=== PATIENT | female | born 1955 | race Caucasian/White ===

== ENCOUNTER 2017-01-28 17:04 | Inpatient (IN) ==
[2017-01-28] MEDS ORDERED: *HR* Adenosine 6 MG/2 ML VIAL IVP ONE ×2 (17:05→17:24)
[2017-01-28] MEDS ORDERED: *HR* Adenosine 6 MG/2 ML SYRINGE IVP ONE (17:11)
[2017-01-28 17:17] LABS: Basophils % 0.7 %
--- NOTE | 2017-01-28 17:17 | Emergency Department Note ---
Disposition Clinical Impression: Narrow complex tachycardia Disposition: Admitted As Inpatient Condition: Good Time of Disposition: 17:35 Arrhythmia/Palpitations HPI - General Chief Complaint: ED Arrhythmia/Palpitations Stated Complaint: Arrhythmia Time Seen by Provider: 01/28/17 17:05 Source: patient Mode of arrival: wheelchair Limitations: no limitations Nursing Notes Reviewed: Yes Vital Signs Reviewed: Yes - History of Present Illness HPI Narrative: The patient is a 61-year-old who had an AL back in the end of October who was at cardiac rehabilitation and developed a rapid narrow complex tachycardia. The regular with a rate of about 200. Patient was brought over a wake and alert her blood pressure was 114 range. Pt Subjective Complaint: rapid heart beat Onset (ago): Just [employer] Duration: constant Severity: moderate Context: occurred during exertion Associated symptoms: Denies: chest pain, shortness of breath Treatments prior to arrival: vagal maneuvers - Related Data Previous Rx's Medication Instructions Recorded Aspirin 81 mg PO DAILY #30 tab.chew 11/18/16 Budesonide/Formoterol 160/4.5 2 puff IH BIDR #1 inhaler 11/18/16 [Symbicort 160/4.5] Clopidogrel [Plavix] 75 mg PO DAILY #30 tablet 11/18/16 Nitroglycerin 0.4 mg SL Q5MIN PRN #30 tab.subl 11/18/16 Rosuvastatin [Crestor] 40 mg PO HS #30 tablet 11/18/16 Allergies Allergy/AdvReac Type Severity Reaction Status Date / Time No Known Allergies Allergy Verified 11/12/16 17:47 Constitutional: Denies: fever, chills, weakness, weight change Eyes: Denies: eye pain, eye discharge, vision change ENT ED: Denies: ear pain, throat pain, dental pain, hearing loss, epistaxis, congestion, dysphagia Cardiovascular: Reports: palpitations. Denies: chest pain, dyspnea on exertion , edema, syncope Respiratory: Denies: cough, dyspnea, wheezes, hemoptysis, stridor Gastrointestinal: Denies: abdominal pain, nausea, vomiting, diarrhea, constipation, hematemesis, melena, hematochezia Genitourinary: Denies: dysuria, frequency, hematuria, discharge Musculoskeletal: Denies: back pain, neck pain, arthralgia, myalgia Integumentary: Denies: rash, abrasion, lesions Neurological: Denies: headache, weakness, numbness, paresthesias, confusion, abnormal gait, vertigo Psychiatric: Denies: anxiety, depression, suicidal thoughts, homicidal thoughts , auditory hallucinations, visual hallucinations Endocrine: Denies: fatigue Hematological/Lymphatic: Denies: easy bleeding, easy bruising Allergic/Immunologic: Denies: facial swelling, urticaria Past Medical History - Past Medical History Medical history: Reports: no medical history, other (STEMI during the current hospital admission for which she underwent PCI and stenting) Surgical history: Reports: appendectomy Psychiatric history: Reports: no psych history - Social History Smoking Status: Former smoker Alcohol use: Reports: none Drug use: Reports: none Physical Exam - General Limitations: no limitations General appearance: alert, in no apparent distress - Head Head exam: atraumatic, normocephalic, normal inspection - Eye Eye exam: Present: normal appearance, PERRL, EOMI - ENT ENT exam: normal exam, normal oropharynx, mucous membranes moist - Neck Neck exam: Present: normal inspection, full ROM, trachea midline - Chest Chest inspection: Present: normal inspection, symmetric chest wall rise - Cardiovascular Cardiovascular exam: Present: normal rhythm, tachycardia - Abdominal Exam Abdominal exam: Present: soft, Non-Tender. Absent: tenderness, distention, guarding, rebound, rigidity - Extremities Exam Extremities exam: Present: normal inspection, full ROM. Absent: tenderness, pedal edema - Expanded Lower Extremity Exam Neurovascular/Tendon exam: Absent: motor deficit, sensory deficit, tendon deficit Gait: observed and normal - Back Exam Back exam: Present: normal inspection, full ROM. Absent: tenderness - Neurological Exam Neurological exam: Present: alert, oriented X3 - Psychiatric Psychiatric exam: Present: normal affect, normal mood - Skin Skin exam: Present: warm, dry, intact, normal color Course - Reevaluation(s) Reevaluation #1: Patient was given Adenocard 6 mg IV without any response, was given 12 mg of adenosine without any response. Time: 17:17 Reevaluation #2: Consultation was obtained with cardiology who wanted to start amiodarone 1 mg/ m. Patient's blood pressure is stable. Patient does not appear to have a reentrant tachycardia due to the nonresponsiveness to a Adenacard. May represent a atrial fibrillation although it's fairly fast. Time: 17:36 Reevaluation #3: EKG sent to . Time: 17:48 Additional Reevaluation(s): The patient was noted to have a decrease in blood pressure to 75/68 with the start of the amiodarone. It was stopped and her pressure immediately came back up to 93 over palp. 1850pm the patient became unstable with a blood pressure of 75 heart rate of 201. Patient was given Lovenox 1 mg/kg was given etomidate 5 mg IV and patient was synchronized cardioverted at 50 with a return of normal sinus rhythm. Blood pressure was normal at 126 systolic. The patient awoke and was intact neurologically. - Consultations Consultation #1: I discussed the case with Dr. Morrissey cardiology wants to start amiodarone 1 mg/ m. No bolus. Time: 17:35 Consultation #2: Discussed with Mary Rayo, admit Time: 18:04 Consultation #3: I discussed the case with , she is aware that we stop the amiodarone. She is going to review her EKG and calls back with recommendations on whether cardioversion is acceptable at this point in time patient is on Plavix and aspirin. The patient's initial blood pressure had dropped to 75 systolic but is back up to 93 after stopping the amiodarone. She denies chest pain at this time. Time: 18:23 Vital Signs Temperature 97.6 F 01/28/17 17:14 Pulse Rate 201 01/28/17 17:14 Respiratory Rate 18 01/28/17 17:14 Blood Pressure 114/89 01/28/17 17:14 O2 Sat by Pulse Oximetry 98 01/28/17 17:14 Temperature 97.6 F 01/28/17 17:14 Pulse Rate 202 01/28/17 18:30 Respiratory Rate 16 01/28/17 18:30 Blood Pressure 83/53 01/28/17 18:30 O2 Sat by Pulse Oximetry 97 01/28/17 18:30 Oxygen Delivery Oxygen Delivery Nasal Cannula Arrhythmia/Palpitations - Lab Data Result diagrams: 01/28/17 17:05 01/28/17 17:05 Lab Results 01/28/17 01/28/17 01/28/17 Range/Units 17:05 17:05 17:05 WBC 8.3 (4.3-11.1) K/mcL RBC 5.11 H (3.82-4.97) M/mcL Hgb 15.5 H (11.5-15.4) g/dL Hct 47.0 H (35.3-44.9) % MCV 92.0 (83.0-100.0) fL MCH 30.3 (28.0-33.3) pg MCHC 33.0 (31.6-35.5) g/dL RDW 13.8 (11.5-14.5) % Plt Count 331 (140-400) K/mcL MPV 9.0 L (9.4-12.4) fL Immature Gran % 0.1 (0-4) % Seg Neutrophils % 56.1 % Lymphocytes % 34.2 % Monocytes % 7.0 % Eosinophils % 1.9 % Basophils % 0.7 % Neutrophils # 4.7 (1.6-8.9) K/mcL Lymphocytes # 2.8 (0.6-4.6) K/mcL Monocytes # 0.6 (0.0-1.3) K/mcL Eosinophils # 0.2 (0.0-0.6) K/mcL Basophils # 0.1 (0.0-0.2) K/mcL Reactive Lymphocytes Present A (Not Present) Platelet Estimate Normal (Normal) PT 11.7 (9.4-12.1) Seconds INR 1.1 APTT 35.5 (26.0-36.0) Seconds Sodium 137 (136-145) mEq/L Potassium 4.1 (3.5-4.5) mEq/L Chloride 99 (98-109) mEq/L Carbon Dioxide 25 (19-29) mEq/L BUN 15 (7-20) mg/dL Creatinine 0.91 (0.57-1.11) mg/dL Est GFR ( Amer) > 60 (> 60) Est GFR (Non-Af Amer) > 60 (> 60) BUN/Creatinine Ratio 16 (6-26) Glucose 89 (70-99) mg/dL Calculated Osmolality 284 (280-300) Calcium 10.4 (8.6-10.8) mg/dL Troponin I (0-0.03) ng/mL TSH 1.191 (0.350-4.840) mcIU/mL 01/28/17 Range/Units 17:05 WBC (4.3-11.1) K/mcL RBC (3.82-4.97) M/mcL Hgb (11.5-15.4) g/dL Hct (35.3-44.9) % MCV (83.0-100.0) fL MCH (28.0-33.3) pg MCHC (31.6-35.5) g/dL RDW (11.5-14.5) % Plt Count (140-400) K/mcL MPV (9.4-12.4) fL Immature Gran % (0-4) % Seg Neutrophils % % Lymphocytes % % Monocytes % % Eosinophils % % Basophils % % Neutrophils # (1.6-8.9) K/mcL Lymphocytes # (0.6-4.6) K/mcL Monocytes # (0.0-1.3) K/mcL Eosinophils # (0.0-0.6) K/mcL Basophils # (0.0-0.2) K/mcL Reactive Lymphocytes (Not Present) Platelet Estimate (Normal) PT (9.4-12.1) Seconds INR APTT (26.0-36.0) Seconds Sodium (136-145) mEq/L Potassium (3.5-4.5) mEq/L Chloride (98-109) mEq/L Carbon Dioxide (19-29) mEq/L BUN (7-20) mg/dL Creatinine (0.57-1.11) mg/dL Est GFR ( Amer) (> 60) Est GFR (Non-Af Amer) (> 60) BUN/Creatinine Ratio (6-26) Glucose (70-99) mg/dL Calculated Osmolality (280-300) Calcium (8.6-10.8) mg/dL Troponin I 0.03 (0-0.03) ng/mL TSH (0.350-4.840) mcIU/mL - EKG Data EKG attestation: Yes I reviewed and interpreted this EKG. Rate: tachycardia Rhythm: SVT Interpretation: no acute changes Critical Care Time Critical Care Time: Yes Total Critical Care Time: 60 Attestation: The high probability of a clinically significant, sudden or life threatening deterioration of the [cardiovascular] system(s) required my full and direct attention, intervention and personal management. The aggregate critical care time was [30] minutes. This time is in addition to time spent performing reported procedures but includes the following: [x] Data Review and interpretation [x] Patient assessment and monitoring of vital signs [x] Documentation [x] Medication orders and management
[2017-01-28 17:19] LABS: Basophils # 0.1 K/mcL (0.0-0.2); Eosinophils # 0.2 K/mcL (0.0-0.6); Eosinophils % 1.9 %; Hemoglobin 15.5 g/dL (11.5-15.4); Immature Granulocytes % 0.1 % (0-4); Lymphocytes # 2.8 K/mcL (0.6-4.6); Lymphocytes % 34.2 %; Mean Corpuscular Hemoglobin 30.3 pg (28.0-33.3); Monocytes # 0.6 K/mcL (0.0-1.3); Platelet Count 331 K/mcL (140-400); Red Blood Count 5.11 M/mcL (3.82-4.97); Red Cell Distribution Width 13.8 % (11.5-14.5); Segmented Neutrophils % 56.1 %
[2017-01-28 17:20] LABS: INR 1.1; Neutrophils # 4.7 K/mcL (1.6-8.9); Prothrombin Time 11.7 Seconds (9.4-12.1)
[2017-01-28 17:22] LABS: Activated Partial Thrombo Time 35.5 Seconds (26.0-36.0)
[2017-01-28 17:28] LABS: BUN/Creatinine Ratio 16 (6-26); Blood Urea Nitrogen 15 mg/dL (7-20); Calcium 10.4 mg/dL (8.6-10.8); Carbon Dioxide 25 mEq/L (19-29); Chloride 99 mEq/L (98-109); Glucose 89 mg/dL (70-99); Osmolality,Calculated 284 (280-300); Potassium 4.1 mEq/L (3.5-4.5); Sodium 137 mEq/L (136-145); eGFR For African Americans > 60 (> 60); eGFR For Non-African Americans > 60 (> 60)
[2017-01-28] MEDS ORDERED: Amiodarone Premix 360 MG/200 ML BAG IVC ONE (17:34)
[2017-01-28 17:52] LABS: Platelet Estimate Normal (Normal); Reactive Lymphocytes Present (Not Present)
[2017-01-28] MEDS ORDERED: 0.9 % Sodium Chloride 500 ML IVC ONE (18:14)
[2017-01-28] MEDS ORDERED: *HR* HYDROmorphone (PF) 1 MG/ML SYRINGE IVP ONE (18:21)
[2017-01-28] MEDS ORDERED: *HR* Promethazine 25 MG/ML VIAL IVP ONE ×2 (18:21→18:30)
[2017-01-28] MEDS ORDERED: *HR* Enoxaparin 60 MG/0.6 ML SYRINGE SQ ONE (18:33)
[2017-01-28] MEDS ORDERED: *HR* Etomidate 20 MG/10 ML AMPUL IVP ONE ×2 (18:34)
[2017-01-28 18:42] LABS: Thyroid Stimulating Hormone 1.191 mcIU/mL (0.350-4.840)
--- NOTE | 2017-01-28 20:38 | Internal Med History&Physical ---
<Benny Yost - Last Filed: 01/28/17 21:46> Date of Encounter: 01/28/17 Time of Encounter: 20:34 Assessment and Plan (1) Narrow complex tachycardia Current visit: Yes Status: Acute Suspect ischemic etiology in setting of STEMI 3 months ago Will consult cardiology for further recommendations She was successfully cardioverted back to normal sinus rhythm after failing Adenosine and not tolerating Amiodarone drip Upon review of her records while she was here for STEMI, she could not tolerate BB or ACEi due to hypotension Initial troponin negative, will trend; obtain Mg/Phos level in AM (2) CAD (coronary artery disease) Current visit: Yes Status: Chronic Stable, no current chest pain Will continue pain on home dose of ASA, Plavix, Statin, Nitro PRN Qualifiers: Qualified Code(s): I25.10 - Atherosclerotic heart disease of [place] coronary artery without angina pectoris (3) DVT prophylaxis Current visit: Yes Status: Acute Heparin 5000 units BID Internal Medicine - H&P: HPI Chief complaint: Arrhythmia Admitted From: Home Plans for Post Hospital Care: Home History of present illness: Ms. Hernandez is a 61 year old female who presents from cardiac rehabilitation for palpitations and arrhythmia. She recently had a STEMI last October and had a drug eluding stent to left circumflex. Patient states that she was undergoing cardiac rehabilitation this afternoon when she was on the excise bike and felt lightheaded and palpitations. The staff informed her to stop the exercise and found that her heart rate was above 200 and was immediately transported to the emergency department. When she arrived to the ED, she was given 2 doses of adenosine which do not help. By request of the netbackup engineer glass deposition tender, she was then placed on an amiodarone drip. This dropped her blood pressure to systolics in the 70s and required subsequent synchronized cardioversion and was converted back to NSR. Patient denied having any chest pain during this entire time, and had no problems with loss of consciousness, shortness of breath, nausea, vomiting, headaches, or visual changes. She states that she is compliant with her medications that were given to her during previous admission. Past Med Surg Social Fam HX - Past Medical History Medical history: myocardial infarction Psychiatric history: no psych history - Past Surgical History Surgical History: appendectomy - Social History Smoking Status: Former smoker Smokeless Tobacco Status: No Alcohol use: none Drug use: none - Family History Father Adopted: No Family Member Ethnicity: Non- Living Status: Hx Family Cardiac Disorders: Yes (HTN, CHF) Hx Family Respiratory Disorders: No Hx Family Cancer: No Hx Family GI Disorders: No Hx Family Endocrine Disorder: Yes Hx Family Neuromuscular Disorders: No Hx Family Neurologic Disorders: No Hx Family HEENT Disorders: No Hx Family Autoimmune Disorders: No Internal Medicine - H&P: Meds Aspirin 81 mg PO DAILY #30 tab.chew 11/18/16 [Rx] Budesonide/Formoterol 160/4.5 [Symbicort 160/4.5] 2 puff IH BIDR #1 inhaler [Rx] Clopidogrel [Plavix] 75 mg PO DAILY #30 tablet 11/18/16 [Rx] Nitroglycerin 0.4 mg SL Q5MIN PRN #30 tab.subl 11/18/16 [Rx] Rosuvastatin [Crestor] 40 mg PO HS #30 tablet 11/18/16 [Rx] Allergies No Known Allergies Allergy (Verified 11/12/16 17:47) All Systems PM: A 10-system review of systems was performed and is negative for pertinent findings except as documented above in the HPI. - Constitutional Constitutional: no chills, no fever(s), no night sweats - EENT Eyes: no change in vision, no discharge, no pain, no photophobia Ears: no ear discharge, no ear pain, no tinnitus Nose, mouth and throat: no dysphagia, no nasal discharge, no neck pain, no sore throat - Cardiovascular Cardiovascular ROS IM: irregular heart rhythm, lightheadedness, palpitations, no chest pain, no diaphoresis, no dyspnea, no syncope - Respiratory Respiratory: no cough, no dyspnea, no wheezing, no excessive phlegm production - Gastrointestinal Gastrointestinal: no abdominal pain, no diarrhea, no hematemesis, no hematochezia, no melena, no nausea, no vomiting - Genitourinary Genitourinary: no change in urinary stream, no dysuria, no flank pain, no hematuria - Musculoskeletal Musculoskeletal ROS IM: no numbness, no tingling - Integumentary Integumentary IM: no rash, no unusual bruising - Neurological Neurological ROS: no confusion, no convulsions, no focal weakness, no numbness, no tingling, no tremor(s) - Hematologic/Lymphatic Hematologic/Lymphatic: no easy bruising - Constitutional Vitals: Temp Pulse Resp BP Pulse Ox 97.8 F 63 15 100/67 98 01/28/17 19:54 01/28/17 19:54 01/28/17 19:54 01/28/17 19:54 01/28/17 19:54 General appearance: Present: cooperative, pleasant, no acute distress, answers questions appropriately - Head Head exam: Present: atraumatic, normocephalic - Eye Eye exam: Present: PERRL, conjuntiva pink, sclera anicteric - Neck Neck exam general surgery: Present: supple, trachea midline. Absent: lymphadenopathy - Respiratory Respiratory exam: Present: CTAB. Absent: accessory muscle use, rales, rhonchi, wheezes - Cardiovascular Cardiovascular exam: Present: RRR, +S1, +S2. Absent: diastolic murmur, gallop, rubs, systolic murmur - GI/Abdominal GI/Abdominal exam: Present: normal bowel sounds, soft, no peritoneal signs. Absent: distended, tenderness - Extremities Exam Extremities exam: Present: warm, radial pulses palpable and symetrical. Absent : calf tenderness, cyanotic, pedal edema - Neurological Exam Neurological exam: Present: alert, no focal deficits. Absent: facial droop, speech deficit - Skin Skin exam: Present: dry, intact Internal Med - H&P Results - Labs CBC & Chem 7: 01/28/17 17:05 01/28/17 17:05 <Prachi Hathaway R - Last Filed: 01/29/17 06:43> Assessment and Plan (1) Non-ST elevation myocardial infarction (NSTEMI) due to mismatch of myocardial oxygen supply and demand Current visit: Yes Status: Acute NSTEMI / demand ischemia / type 2 myocardial injury: Possibly secondary to narrow complex tachycardia. Trend troponins. Cardiology consult Internal Medicine - H&P: HPI History of present illness: Ms. Hernandez is a 61 year old female All Systems PM: A 10-system review of systems was performed and is negative for pertinent findings except as documented above in the HPI. - Constitutional Vitals: Temp Pulse Resp BP Pulse Ox 98.1 F 51 18 90/54 96 01/29/17 04:19 01/29/17 04:19 01/29/17 04:19 01/29/17 04:19 01/29/17 04:19 Internal Med - H&P Results - Labs CBC & Chem 7: 01/29/17 05:26 01/29/17 05:26 Labs: Short CBC 01/29/17 Range/Units 05:26 WBC 6.4 (4.3-11.1) K/mcL Hgb 12.7 D (11.5-15.4) g/dL Hct 38.1 (35.3-44.9) % Plt Count 252 (140-400) K/mcL Neutrophils # 3.4 (1.6-8.9) K/mcL BMP 01/29/17 05:26 Sodium 139 Potassium 3.3 L Chloride 108 Carbon Dioxide 24 BUN 10 Creatinine 0.71 Glucose 76 Calcium 8.0 L D Cardiac Enzymes 01/28/17 01/29/17 Range/Units 23:04 05:26 Troponin I 2.15 H* 1.86 H* (0-0.03) ng/mL - Attending Attestation I performed a history and physical examination of the patient and discussed his management with the Resident/Medical Laboratory Technician (Dr Yost). I reviewed the residents note and agree with the documented findings and plan of care, with additions as below. 61-year-old female with recent history of STEMI s/p drug eluding stent to left circumflex, in October 2016. She had lightheadedness and dizziness while she was in cardiac rehabilitation. She was noted to have narrow complex tachycardia , which did not respond to adenosine. Amiodarone caused hypotension and hence the patient was DC cardioverted. TSH is normal. Denies chest pain/palpitations at the time of my evaluation. O/E: Systolic murmur on cardiac evaluation. Lungs clear to auscultation. Narrow complex tachycardia: Possible SVT with aberrant conduction. Pt is DC cardioverted. Cardiology consultation. Pt apparently did not tolerate beta blockers during her previous admission. Await cardiology evaluation prior to starting antiarrhythmic drugs. Magnesium level is normal. TSH is normal. NSTEMI / demand ischemia / type 2 myocardial injury: Possibly secondary to narrow complex tachycardia. Trend troponins. Enoxaparin 1 mg/Kg Q12H. Cardiology consult.
[2017-01-28] MEDS ORDERED: Acetaminophen 325 MG TABLET PO PRN (21:23)
[2017-01-28] MEDS ORDERED: Naloxone 0.4 MG/ML INJ IVP PRN (21:23)
[2017-01-28] MEDS ORDERED: *HR* Promethazine 25 MG/ML VIAL IVP PRN (21:23)
[2017-01-28] MEDS ORDERED: Nitroglycerin 0.4 MG TAB.SUBL SL PRN (21:29)
[2017-01-28] MEDS: Budesonide/Formoterol 160/4.5 MDI IH SCH (22:19)
[2017-01-29 05:37] LABS: Basophils # 0.1 K/mcL (0.0-0.2); Basophils % 0.8 %; Eosinophils # 0.2 K/mcL (0.0-0.6); Eosinophils % 2.3 %; Hematocrit 38.1 % (35.3-44.9); Immature Granulocytes % 0.2 % (0-4); Lymphocytes # 2.4 K/mcL (0.6-4.6); Lymphocytes % 37.4 %; Mean Corpuscular HGB Conc 33.3 g/dL (31.6-35.5); Mean Corpuscular Hemoglobin 30.5 pg (28.0-33.3); Mean Corpuscular Volume 91.4 fL (83.0-100.0); Mean Platelet Volume 8.8 fL (9.4-12.4); Monocytes # 0.4 K/mcL (0.0-1.3); Monocytes % 5.9 %; Neutrophils # 3.4 K/mcL (1.6-8.9); Platelet Count 252 K/mcL (140-400); Red Blood Count 4.17 M/mcL (3.82-4.97); Segmented Neutrophils % 53.4 %
[2017-01-29 05:46] LABS: Hemoglobin 12.7 g/dL (11.5-15.4)
[2017-01-29 06:00] LABS: Blood Urea Nitrogen 10 mg/dL (7-20); Carbon Dioxide 24 mEq/L (19-29); Chloride 108 mEq/L (98-109); Potassium 3.3 mEq/L (3.5-4.5); Sodium 139 mEq/L (136-145)
[2017-01-29] MEDS ORDERED: *HR* Heparin 5,000 UNIT/ML VIAL SQ SCH (06:00)
[2017-01-29 06:01] LABS: BUN/Creatinine Ratio 14 (6-26); Glucose 76 mg/dL (70-99); Magnesium 1.8 mg/dL (1.6-2.6); Osmolality,Calculated 286 (280-300); Phosphorous 3.3 mg/dL (2.3-4.7); eGFR For African Americans > 60 (> 60); eGFR For Non-African Americans > 60 (> 60)
[2017-01-29 06:05] LABS: Platelet Estimate Normal (Normal)
[2017-01-29 06:06] LABS: Reactive Lymphocytes Present (Not Present)
[2017-01-29] MEDS: *HR* Enoxaparin 60 MG/0.6 ML SYRINGE SQ SCH ×2 (06:16→17:21)
[2017-01-29] MEDS: Aspirin 81 MG TAB.CHEW PO SCH (07:48)
[2017-01-29] MEDS ORDERED: Potassium Chloride 20 MEQ, Lidocaine 1% 2 ML in D5% in Water 250 ML IVPB ONE (07:54)
--- NOTE | 2017-01-29 08:51 | Cardiology Consult Note ---
Date of Encounter: 01/29/17 Time of Encounter: 08:15 Assessment and Plan (1) Ventricular tachycardia Current Visit: Yes Status: Acute Patient presented from cardiac rehab with symptomatic narrow complex ventricular tachycardia. SHe did not respond to adenosine or tolerate amiodarone. She was successfully cardioverted to NSR. Unfortunately she cannot tolerate AV og blockers d/t hypotension. Most recent TTE 11/17/17 showed EF 45-50%. Segmental wall motion abnormalities seen. Repeat BLAKE. Potassium 4.1 on admission and now 3.3. Potassium replaced. [facility] recommended to r/o ischemic cause of VT. Indications, risks, benefits, and alternatives discussed and she agrees to proceed. (2) Non-ST elevation myocardial infarction (NSTEMI) due to mismatch of myocardial oxygen supply and demand Current Visit: Yes Status: Acute Troponin elevation in the setting of VT and cardioversion. Troponin 0.03, 2.15, and 1.86, trending down. C/o intermittent left neck and left arm pain. Continue therapeutic lovenox. Asa, plavix, and statin. NTG SL PRN. Proceeding with [facility] today as discussed above. (3) CAD (coronary artery disease) Current Visit: Yes Status: Chronic H/o STEMI 11/12/16. C 11/13/17- 100% stenosis in the pCX, 60% dRCA. EF 30% on angiogram. TTE 11/14/17- EF 55%, mild systolic dysfunction, moderate diastolic dysfunction , mild MR. Limited TTE 11/17/17- EF 45-50%. Segmental wall motion abnormality, small circumferential pericardial effusion. Conttinue asa, plavix, and statin. Not on bb d/t hypotension. Continue cardiac rehab after discharge. Qualifiers: Qualified Code(s): I25.10 - Atherosclerotic heart disease of [place] coronary artery without angina pectoris Discussion w patient/family: The assessment and plan as outlined above was discussed with the patient and/or family members who expressed understanding and agreement. All questions were answered. Thank you for involving us in the care of your patient. Please call with any questions. History of Present Illness Consult date: 01/29/17 Requesting physician: Prachi Hathaway Consult reason: Narrow complex tachycardia Chief complaint: Lightheadedness, palpitations History of present illness: Ms. Hernandez is a 61 year old female with a history of CAD s/p STEMI, BIANCA to the pCX 10/2016, and COPD who presented from cardiac rehab with lightheadedness, elevated heart rate, and palpitations. She was found to have narrow complex tachycardia. She was given 3 rounds of adenosine without a response. She was started on a amiodarone bolus and develop hypotension. She was then cardioverted back to R. She admits to similar symptoms two days prior lasting several minutes She admits to intermittent left neck pain and left arm pain over the last two weeks that usually occurs at rest. She denies chest pain.Denies increasing SOB or orthopnea. She has completed 3 visits to cardiac rehab. After her IA she did not tolerate beta-rosa or daysi inhibitor d/t increasing SOB/COPD and hypotension. Previous cardiac testing includes: LHC 11/13/17- 100% stenosis in the pCX, 60% dRCA. EF 30% on angiogram. TTE 11/14/17- EF 55%, mild systolic dysfunction, moderate diastolic dysfunction , mild MR. Limited TTE 11/17/17- EF 45-50%. Segmental wall motion abnormality, small circumferential pericardial effusion. Past Med Surg Social Fam HX - Past Medical History Medical history: cardiomyopathy, coronary artery disease, myocardial infarction Psychiatric history: no psych history - Past Surgical History Surgical History: appendectomy - Social History Smoking Status: Former smoker Smokeless Tobacco Status: No Alcohol use: none Drug use: none - Family History Father Adopted: No Family Member Ethnicity: Non- Living Status: Hx Family Cardiac Disorders: Yes (HTN, CHF) Hx Family Respiratory Disorders: No Hx Family Cancer: No Hx Family GI Disorders: No Hx Family Endocrine Disorder: Yes Hx Family Neuromuscular Disorders: No Hx Family Neurologic Disorders: No Hx Family HEENT Disorders: No Hx Family Autoimmune Disorders: No Medications and Allergies Aspirin 81 mg PO DAILY #30 tab.chew 11/18/16 [Rx] Budesonide/Formoterol 160/4.5 [Symbicort 160/4.5] 2 puff IH BIDR #1 inhaler [Rx] Clopidogrel [Plavix] 75 mg PO DAILY #30 tablet 11/18/16 [Rx] Nitroglycerin 0.4 mg SL Q5MIN PRN #30 tab.subl 11/18/16 [Rx] Rosuvastatin [Crestor] 40 mg PO HS #30 tablet 11/18/16 [Rx] Allergies No Known Allergies Allergy (Verified 11/12/16 17:47) All Systems Review: A 10-system review of systems was performed and is negative for pertinent findings except as documented above in the HPI. Physical Examination Vital Signs, Last 4 Hours Temp Pulse Resp BP Pulse Ox 01/29/17 08:40 98.2 F 72 24 102/59 97 01/29/17 07:50 54 General: Conversant, No Apparent Distress HEENT: Atraumatic, Normocephaly, Mucus Membranes Moist Neck: No JVD, Normal carotid pulses Cardiac: Reg Rate and Rhythm, Normal S1 and S2, No Murmur Lungs: Normal Breath Sounds, No Wheeze, Rales, Rhonchi Neuro: Alert and responsive, No focal deficits noted Abdomen: Soft, Non-Tender Skin: No rashes noted on visualized skin Musculoskeletal: No Chest Wall Tenderness Extremities: No Clubbing, No Cyanosis, No Edema, Normal Pulses Results 01/29/17 05:26 01/29/17 05:26 Lab Results 01/28/17 01/28/17 01/29/17 23:04 23:04 05:26 WBC 6.4 Hgb 12.7 D Hct 38.1 Plt Count 252 Sodium Potassium Chloride Carbon Dioxide BUN Creatinine Glucose Calcium Magnesium 1.9 Troponin I 2.15 H* 01/29/17 01/29/17 05:26 05:26 WBC Hgb Hct Plt Count Sodium 139 Potassium 3.3 L Chloride 108 Carbon Dioxide 24 BUN 10 Creatinine 0.71 Glucose 76 Calcium 8.0 L D Magnesium 1.8 Troponin I 1.86 H* - EKG Interpretation EKG results cardiology: other (24 hour telemetry review shows SR to possible junctional rhythm vs afib at times. Avg HR was 75 bpm. Min HR 40 bpm at 0320 am. No recurrent VT seen. No pauses.) Consult Discharge Plan - Plan Referrals: NO,PCP [Primary Care Provider] -
[2017-01-29] MEDS ORDERED: Magnesium Sulfate 2 GM in D5% in Water 100 ML IVPB ONE (10:28)
--- NOTE | 2017-01-29 11:09 | Electrocardiograph Report ---
[address] [place] [address] Test Date: 2017-01-28 Pat Name: Lynn Hernandez Department: 103 Room: 2N10 Gender: F Automated Access Systems Technician: : 1955 Requested By: Minor Pascal Order Number: [id number] Reading MD: Stefano Muñoz MD Measurements Intervals [place] Rate: 200 P: SD: 0 QRS: 100 QRSD: 137 T: -73 QT: 253 QTc: 353 Interpretive Statements VENTRICULAR TACHYCARDIA Electronically Signed On 01-29-2017 11:07:28 EST by Stefano Muñoz MD
[2017-01-29] MEDS: Budesonide/Formoterol 160/4.5 MDI IH SCH ×2 (11:22→20:21)
--- NOTE | 2017-01-29 11:55 | Pre-Sedation Evaluation ---
Pre-sedation evaluation - Pre-sedation checklist Date of procedure: 01/29/17 Procedure: [facility] Recent Vitals: Last Vital Signs Temp 98.2 F 01/29/17 08:40 Pulse 51 01/29/17 11:14 Resp 20 01/29/17 11:23 BP 102/59 01/29/17 08:40 Pulse Ox 98 01/29/17 11:23 H&P (including ROS) documented in medical record: Yes Previous reaction to sedatives/anesthetics: No Dietary Status: unknown Airway Assessment: Patient can open mouth completely, TMJ function normal ASA Classification *see protocol: CLASS II-Mild systemic disease Plan of Care: Pt appropriate candidate for procedure/moderate/conscious sedation , Risks/benefits of procedure/sedation discussed w/ patient/family
[2017-01-29] MEDS ORDERED: 0.9 % Sodium Chloride 1,000 ML ONE ×2 (12:20→12:41)
[2017-01-29] MEDS ORDERED: Verapamil 5 MG/2 ML VIAL ONE (12:20)
[2017-01-29] MEDS ORDERED: Nitroglycerin 1,000 MCG/10 ML VIAL IV ONE (12:21)
[2017-01-29] MEDS ORDERED: *HR* Heparin 10,000 UNIT/10 ML VIAL ONE (12:21)
[2017-01-29] MEDS ORDERED: Heparin 1,000 UNITS/500 mL NS 500 ML ONE (12:21)
[2017-01-29] MEDS ORDERED: *HR* FentaNYL (PF) 100 MCG/2 ML VIAL ONE (12:37)
[2017-01-29] MEDS ORDERED: *HR* Midazolam HCl 2 MG/2 ML VIAL ONE (12:37)
--- NOTE | 2017-01-29 13:08 | Internal Med Progress Note ---
Date of Encounter: 01/29/17 Time of Encounter: 11:15 - Assessment and plan (1) Non-ST elevation myocardial infarction (NSTEMI) due to mismatch of myocardial oxygen supply and demand Current Visit: Yes Status: Acute Assessment and plan: S/P cardioversion for rate control as she became hypotensive after amiodarone was initiated Elevation of TNI after cardioversion No chest pain reported History of CAD, recent ACS event s/p PCI to circumflex. Scheduled for repeat LHC today (01/29/17). Continue therapeutic dose of lovenox,asa, plavix, statin therapy patient not able to tolerate bb due to hypotension Cardiology consultation appreciated (2) Narrow complex tachycardia Current Visit: Yes Status: Acute Assessment and plan: s/p cardioversion was sent from cardiac rehab resolved at this time plan as listed above (3) CAD (coronary artery disease) Current Visit: Yes Status: Chronic Qualifiers: Coronary Disease-Associated Artery/Lesion type: unspecified vessel or lesion type [place] vs. transplanted heart: [place] heart Associated angina: angina presence unspecified Qualified Code(s): I25.10 - Atherosclerotic heart disease of [place] coronary artery without angina pectoris (4) Hypokalemia Current Visit: No Status: Acute Assessment and plan: K supplemented Goal K >4 as per cardio continue to monitor electrolytes and replace as needed (5) DVT prophylaxis Current Visit: Yes Status: Acute Assessment and plan: anticoagulated with Lovenox - Subjective Interval history: Patient seen and examined at bedside. Resting in bed and reports of feeling better today. Rate controlled, s/p cardioversion. Denies chest pain, sob at this time. Cardiology consultation noted, scheduled for LHC later today. - Constitutional Vitals: Temp Pulse Resp BP Pulse Ox 98.2 F 51 20 102/59 98 01/29/17 08:40 01/29/17 11:14 01/29/17 11:23 01/29/17 08:40 01/29/17 11:23 General appearance: Present: cooperative, A&O X 3, pleasant, no acute distress, answers questions appropriately - Head Head exam: Present: atraumatic, normocephalic - Eye Eye exam: Present: normal appearance, conjuntiva pink, sclera anicteric - Respiratory Respiratory exam: Present: CTAB. Absent: accessory muscle use, rales, rhonchi, wheezes - Cardiovascular Cardiovascular exam: Present: RRR, +S1, +S2 - GI/Abdominal GI/Abdominal exam: Present: normal bowel sounds, soft, no peritoneal signs. Absent: distended, tenderness - Extremities Exam Extremities exam: Present: warm, radial pulses palpable and symetrical. Absent : calf tenderness, cyanotic, pedal edema - Neurological Exam Neurological exam: Present: alert, oriented X3, no focal deficits - Psychiatric Psychiatric exam: Present: normal affect, normal mood Internal Medicine: Result - Labs CBC & Chem 7: 01/29/17 05:26 01/29/17 05:26 Labs: Short CBC 01/29/17 Range/Units 05:26 WBC 6.4 (4.3-11.1) K/mcL Hgb 12.7 D (11.5-15.4) g/dL Hct 38.1 (35.3-44.9) % Plt Count 252 (140-400) K/mcL Neutrophils # 3.4 (1.6-8.9) K/mcL BMP 01/29/17 05:26 Sodium 139 Potassium 3.3 L Chloride 108 Carbon Dioxide 24 BUN 10 Creatinine 0.71 Glucose 76 Calcium 8.0 L D Cardiac Enzymes 01/28/17 01/29/17 Range/Units 23:04 05:26 Troponin I 2.15 H* 1.86 H* (0-0.03) ng/mL - ABG Interpretation ABG results: PT/INR, D-dimer PT 11.7 Seconds (9.4-12.1) 01/28/17 17:05 Consult Discharge Plan - Plan Referrals: NO,PCP [Primary Care Provider] -
--- NOTE | 2017-01-29 13:49 | Invasive Diagnostic Lab Proc ---
Name: Lynn Hernandez Date of Study: 01/29/2017 Date: 1955 Ht: 66.1in Medical Record#: [id number] Age: 61 Wt: 108.03lb Gender: Female BSA: 1.54 Order #: [id number] BMI: 17.36 Physicians Procedure Physician: Stefano Muñoz MD, [facility] Referring MD: Referring MD: Staff Name Position Time In Evelin Cherry RN Monitor 12:32 PM Mary Levine RT (R) Scrub 12:43 PM Evelin Cherry RN Shade Matcher 12:43 PM Quin Barcenas RN Monitor 12:44 PM Indications Indication Non-Stemi vt Procedures Performed Procedure L HRT ARTERY/VENTRICLE ANGIO Pre-Procedure Checklist Informed consent is complete signed and on chart. H\\T\\P is on chart. ID band is on and ID verified with patient. Patient NPO for procedure The procedure was described for the patient and questions were answered. Blood Pressure: 107/59 ECG is on chart. Rhythm: Sinus Bradycardia Plan of Care Patient will tolerate the procedure without complications. Adequate level of comfort will be maintained. Hemodynamics will remain stable Patient will recover from procedure without complications. Respiratory function will be maintained. Cardiac rhythm will remain stable. Patient temperature will be maintained. Patient and/or family have verbalized understanding of the procedure. Patient Education Chief Complaint/Reason for Test: Cardiac Cath Developmental Category: Adult (18-64 years) Developmentally Appropriate for Age: Yes Learning Barriers: None Education Needs: Procedure Education Method: Verbal Information Taught: Cardiac Cath Educational Evaluation: Able to repeat information Intravenous Access Time IV Size Location DC'd Fluid/Drip Rate Units RN 12:32 PM 18g 1 11/26" Patent On Arrival Lt Antecubital 0.9NaCl 25 ml/hr Evelin Cherry RN Allergies No Known Allergies Vital Signs Time BP (mmHg) HR (bpm) O2 Sat. RR (bpm) LOC 12:46 PM / % 5 = Fully awake and oriented or at pre-proc level 12:46 PM / % 5 = Fully awake and oriented or at pre-proc level 01:01 PM / % 5 = Fully awake and oriented or at pre-proc level 01:16 PM / % 5 = Fully awake and oriented or at pre-proc level 01:19 PM / % 5 = Fully awake and oriented or at pre-proc level 01:24 PM / % 5 = Fully awake and oriented or at pre-proc level 12:44 PM 107 / 59 51 100 % 15 12:48 PM 99 / 53 48 100 % 18 12:53 PM 90 / 51 50 99 % 15 12:56 PM 91 / 55 48 98 % 20 12:58 PM 81 / 46 44 98 % 20 12:59 PM 86 / 48 48 99 % 18 01:01 PM 91 / 48 45 99 % 21 01:03 PM 90 / 48 46 98 % 19 01:07 PM 90 / 49 48 99 % 23 01:08 PM 90 / 50 47 100 % 27 01:13 PM 94 / 54 49 100 % 18 01:18 PM 91 / 53 47 100 % 20 01:21 PM 87 / 51 47 100 % 20 01:24 PM 100 / 54 49 100 % 20 01:28 PM 106 / 56 56 100 % 20 01:33 PM 111 / 55 47 100 % 20 Procedural Medications Time Medication Dose Units Method Given By 12:46 PM Oxygen 2 L/min nasal cannula Evelin Cherry RN 12:46 PM Versed 2 mg Intravenous Evelin Cherry RN 12:46 PM Fentanyl 50 mcg Intravenous Evelin Cherry RN 01:14 PM Lidocaine 2% 15 ml Subcutaneous Stefano Muñoz MD, [facility] ASA Classification: CLASS II- Mild systemic disease (i.e. well-controlled diabetes, hypertension, asthma, cigarette smoking) Priyank Score Preprocedure Postprocedure Activity 2- Moves 4 extremities sustained head lift Activity 2- Moves 4 extremities sustained head lift Circulation 2- SBP +/= 20 points of pre-anesthetic level Circulation 2- SBP +/= 20 points of pre-anesthetic level Consciousness 2- Awake and alert oriented x 3 Consciousness 2- Awake and alert oriented x 3 O2 Saturation 2- Able to maintain O2 satruation of 92% on room air O2 Saturation 2- Able to maintain O2 satruation of 92% on room air Respiratory 2- Able to deep breathe and cough well Respiratory 2- Able to deep breathe and cough well Total Score 10 Total Score 10 Contrast Agent: Isovue Diagnostic Contrast: 80 ml Total Contrast: 80 ml Fluoro Dose: 127 mGy Procedure Log Time Note Enter By 12:31 PM CathStat 12:32 PM CathStat 12:32 PM Hair removed from procedure site in procedure lab using clippers. Bilateral groin prepped with Chloraprep by Abner, Mary RT (R), safety strap applied then patient was draped. Skin intact. tsites 12:32 PM ASA Class CLASS II- Mild systemic disease (i.e. well-controlled diabetes, hypertension, asthma, cigarette smoking) tsites 12:32 PM Meet and greet completed tsites 12:32 PM Sign in performed according to hospital policy. 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 to [facility] programmer 2 at 12:32 tsites 12:43 PM Vitals capture started with the following parameters, Patient=Adult, Interval=5 min, Initial Uudhqaiv=530 mmHg, Deflation Rate=5 mmHg, Cuff placed on Left Arm 12:43 PM Mary Levine RT (R) Position: Scrub Time in: 12:43 tsites 12:43 PM Evelin Cherry RN Position: Shade Matcher Time in: 12:43 tsites 12:44 PM Quin Barcenas RN Position: Monitor Time in: 12:44 tsites 12:44 PM Patient charges- Angio tray pack, Navilyst 3mm J, Pulse Oximetry and ACIST tubing and transducer tsites 12:44 PM HR=51 bpm, ZEDC=242/59 mmhg, CeB9=116.0 %, Resp=15 B/min, Comment=SB 12:44 PM Case Delayed No tsites 12:46 PM Time: 12:46 Oxygen on at 2 L/min per nasal cannula by Evelin Cherry RN tsites 12:46 PM Time: 12:46 Versed 2 mg Intravenous Given by Evelin Cherry RN tsites 12:46 PM Time: 12:46 Fentanyl 50 mcg Intravenous Given by Evelin Cherry RN tsites 12:46 PM Time: 12:46 Patient comfortable and pain free: Yes tsites 12:46 PM Time: 12:46LOC: 5 = Fully awake and oriented or at pre-proc level tsites 12:48 PM HR=48 bpm, NIBP=99/53 mmhg, DxS1=340.0 %, Resp=18 B/min, Comment=SB 12:50 PM Recorded ECG: HR=47 Condition=Condition 1 12:53 PM Pressure channel 1 zeroed. 12:53 PM HR=50 bpm, NIBP=90/51 mmhg, SpO2=99.0 %, Resp=15 B/min, Comment=SB 12:55 PM NIBP STAT measurement started. 12:56 PM HR=48 bpm, NIBP=91/55 mmhg, SpO2=98.0 %, Resp=20 B/min, Comment=SB 12:58 PM HR=44 bpm, NIBP=81/46 mmhg, SpO2=98.0 %, Resp=20 B/min, Comment=SB 12:59 PM NIBP STAT measurement started. 12:59 PM HR=48 bpm, NIBP=86/48 mmhg, SpO2=99.0 %, Resp=18 B/min, Comment=SB 01:01 PM NIBP STAT measurement started. 01:01 PM Time: 12:46 Patient comfortable and pain free: Yes tsites 01:01 PM Time: 12:46LOC: 5 = Fully awake and oriented or at pre-proc level tsites 01:01 PM HR=45 bpm, NIBP=91/48 mmhg, SpO2=99 %, Resp=21 B/min 01:02 PM Physican paged/called 13:02 tsites 01:03 PM HR=46 bpm, NIBP=90/48 mmhg, SpO2=98.0 %, Resp=19 B/min, Comment=SB 01:06 PM NIBP STAT measurement started. 01:07 PM HR=48 bpm, NIBP=90/49 mmhg, SpO2=99 %, Resp=23 B/min 01:08 PM HR=47 bpm, NIBP=90/50 mmhg, AgW3=981 %, Resp=27 B/min 01:13 PM Physician arrived 13:13 tsites 01:13 PM HR=49 bpm, NIBP=94/54 mmhg, DbJ8=069.0 %, Resp=18 B/min, Comment=SB 01:14 PM Time out performed according to hospital policy tsites 01:14 PM Time: 13:14 15 ml Lidocaine 2% to right groin Subcutaneous Given by Stefano Muñoz MD, [facility] tsites 01:15 PM Access obtained by percutaneous puncture. 6Fr 10cm Terumo [place] sheath placed in right Femoral artery. [id number] tsites 01:16 PM 5Fr FL 4 catheter inserted over the wire C tsites :16 PM Time: 13:01LOC: 5 = Fully awake and oriented or at pre-proc level tsites :16 PM Time: 13:01 Patient comfortable and pain free: Yes tsites 01:16 PM Recorded Pressure: Ao, HR=45, Condition=Condition 1 (Aorta) Ao 92/48/66 01:16 PM LCA angiography performed in [facility] tsites 01:18 PM Catheter removed tsites 01:18 PM HR=47 bpm, NIBP=91/53 mmhg, DvM7=670.0 %, Resp=20 B/min, Comment=SB 01:19 PM 5Fr FL 3.5 catheter inserted over the wire [id number] tsites :19 PM Time: 13:16LOC: 5 = Fully awake and oriented or at pre-proc level tsites :19 PM Time: 13:16 Patient comfortable and pain free: Yes tsites 01:21 PM LCA angiography performed in multiple views. tsites 01:21 PM Recorded Pressure: Ao, HR=46, Condition=Condition 1 (Aorta) Ao 65/18/37 01:21 PM NIBP STAT measurement started. 01:21 PM Recorded Pressure: Ao, HR=45, Condition=Condition 1 (Aorta) Ao 91/35/63 01:21 PM HR=47 bpm, NIBP=87/51 mmhg, JxA8=546.0 %, Resp=20 B/min, Comment=SB 01:21 PM Catheter removed tsites 01:22 PM 5Fr FR 4 catheter inserted over the wire DNC tsites 01:22 PM RCA angiography performed in multiple views. tsites 01:22 PM Recorded Pressure: Ao, HR=48, Condition=Condition 1 (Aorta) Ao 84/47/63 01:23 PM Coronary Dominance: right tsites 01:23 PM Catheter removed tsites 01:23 PM 5Fr Radial catheter inserted over the wire [id number] tsites 01:23 PM Lesion found in Mid RCA. Pre Stenosis: 40 Pre [place]ASIA Flow: 3: Complete and Brisk Flow/Perfusion tsites 01:23 PM Lesion found in Distal RCA. Pre Stenosis: 60 Pre [place]AS[place] Flow: 3: Complete and Brisk Flow/Perfusion tsites 01:24 PM Right Coronary, Right Posterior Descending Arteries with Right Posterolateral and Acute Marginal branches with 60 % stenosis. tsites :24 PM Time: 13:19LOC: 5 = Fully awake and oriented or at pre-proc level tsites :24 PM Time: 13:19 Patient comfortable and pain free: Yes tsites :24 PM HR=49 bpm, WHLO=521/54 mmhg, BwW8=363.0 %, Resp=20 B/min, Comment=SB 01:24 PM Recorded Pressure: Ao, HR=49, Condition=Condition 1 (Aorta) Ao 99/47/65 01:25 PM LCA angiography performed in multiple views. tsites 01:25 PM Lesion found in Proximal LAD. Pre Stenosis: 20 Pre [place]ASIA Flow: 3: Complete and Brisk Flow/Perfusion tsites 01:25 PM Lesion found in Mid LAD. Pre Stenosis: 20 Pre [place]ASIA Flow: 3: Complete and Brisk Flow/Perfusion tsites 01:25 PM Proximal Left Anterior Descending Coronary Artery with 20% stenosis. tsites 01:26 PM 5Fr Pigtail catheter inserted over the wire [facility] tsites 01:26 PM Catheter selectively placed in left ventricle tsites 01:26 PM Recorded Pressure: LV, HR=51, Condition=Condition 1 (Left Ventricle) LV 109/1/16 01:26 PM Bolus angiogram of left Ventricle complete: 11 ml/sec for a total of 30 mls tsites 01:27 PM Recorded Pressure: LV, Ao, HR=54, Condition=Condition 1 (Left Ventricle) LV 99/2/19, (Aorta) Ao 96/38/64 01:28 PM Catheter removed tsites 01:28 PM Bolus angiogram of right Femoral complete: 2 ml/sec for a total of 4 mls tsites 01:28 PM HR=56 bpm, JZPB=379/56 mmhg, YiQ3=706.0 %, Resp=20 B/min, Comment=SB 01:31 PM Procedure completed at 13:31 tsites 01:31 PM Sign out completed: Radiation Dose 127 mGy Fluoro Time: 4.5 Isovue 370 - 200ml contrast 80 ml given by Stefano Muñoz MD, [facility]. Complications: NoneCardiac Rehab Consult needed: YesConfirmed administered medications: Yes tsites 01:32 PM Arterial sheath pulled, Mynx closure device used and was Successful S/N. tsites 01:33 PM HR=47 bpm, YYSZ=269/55 mmhg, PeH6=906.0 %, Resp=20 B/min, Comment=SB 01:34 PM Isovue 370 - 200ml,1 Bottle(s) used. tsites 01:34 PM Post ECG Sinus Bradycardia tsites 01:35 PM Post Blood Pressure 111/55 tsites 01:35 PM Information taught Cardiac Cath tsites 01:35 PM Education needs Plan of Care, Disease Process, and Responsibilities of Patient in Care tsites 01:35 PM Learning barriers :None tsites 01:35 PM Education Methods Verbal tsites 01:35 PM Education evaluation Able to repeat information tsites 01:35 PM Site status No bleeding/hematoma - Rt Groin as reported by Mary Levine RT (R) at 13:35 tsites 01:35 PM Opsite applied tsites 01:35 PM Plavix, Effient or Brilinta given Yes on the unit tsites 01:35 PM Family placed in consult room. tsites 01:39 PM Time: 13:24 Patient comfortable and pain free: Yes tsites 01:39 PM Time: 13:24LOC: 5 = Fully awake and oriented or at pre-proc level tsites 01:39 PM Complications: None tsites 01:39 PM Fluoro Time: 4.5 tsites 01:39 PM Isovue 370 - 200ml contrast 80 ml given by Stefano Muñoz MD, FACC. tsites 01:40 PM Radiation Dose 127 mGy tsites 01:45 PM Patient out of room: 13:45 tsites 01:45 PM Cardiac Rehab here talking to patient, Suri tsites Complications Complication None Hemodynamics Pressures Site Systolic/A Wave Diastolic/V Wave Mean AO 92 48 66 AO 65 18 37 AO 91 35 63 AO 84 47 63 AO 99 47 65 LV 109 1 16 LV 99 2 19 AO 96 38 64 Post Procedure Information Blood Pressure: 111/55 mmHg Rhythm: Sinus Bradycardia Post procedural instructions were given Closure Device Time Device Success/Fail 01/29/2017 1:32:00 PM MynxGrip Successful Site Checks Time Location Status Staff Sheath In? Note 01:35 PM Rt Groin No bleeding/hematoma Mary Levine RT (R) Pulses Time Site Pre-Procedure Post-Procedure Note 01/29/2017 12:32:00 PM Bilateral DP \\T\\ PT 2+ Updated by Mary Grey RT (R) on 01/29/2017 1:45:55 PM RT Loraine electronically signed on 01/29/2017 1:46:29 PM with status of Final
[2017-01-29 14:55] LABS: Magnesium 2.3 mg/dL (1.6-2.6); Potassium 3.5 mEq/L (3.5-4.5)
[2017-01-29] MEDS ORDERED: Potassium Chloride 40 MEQ, Lidocaine 1% 2 ML in D5% in Water 500 ML IVPB ONE (15:33)
--- NOTE | 2017-01-29 16:31 | ECHO - Doppler Report ---
Echocardiogram Name: Lynn Hernandez Date of Study: 01/29/2017 Date: 1955 Ht: 66.0 in Medical Record#: [id number] Age: 61 Wt: 110.0 lb Gender: Female BSA: 1.55 Order #: [id number] Location: [facility] Room #: 2N10 Reading Physician: Pavan Henriquez MD, [facility] Cable Repairer: Leonarda Garcia Ordering Physician: Jairo Finn CNP Primary Physician: Filomena Ramos DO Indications: NSTEMI Impressions: Mild-moderate LV systolic dysfunction, LVEF 40%. There are regional wall motion abnormalities, see diagram below. Moderate left ventricular diastolic dysfunction. Normal right ventricular size and function. Mild mitral regurgitation. Mild aortic regurgitation. Unable to estimate RVSP due to lack of TR jet. Left Ventricular Wall Motion: Rest Echo Findings The mid anterior lateral, basal anterior lateral, mid inferior lateral and basal inferior lateral cota were hypokinetic. All other wall segments showed normal motion. Findings: Study Quality * Technically adequate exam. ECG Findings * Sinus bradycardia. Left Ventricle * Mild-moderate LV systolic dysfunction, LVEF 40%. There are regional wall motion abnormalities, see diagram below. * Normal LV chamber size and wall thickness. * Moderate left ventricular diastolic dysfunction. Right Ventricle * Normal right ventricular size and function. Left Atrium * Normal left atrial size. Right Atrium * Normal right atrial size. Aorta * Normally sized aortic root. Pericardium * There is no pericardial effusion present. IVC * Normal IVC dimensions and inspiratory collapse. Tricuspid Valve * Normal tricuspid valve structure. * No tricuspid stenosis. * Trace tricuspid regurgitation. * Unable to estimate RVSP due to lack of TR jet. Pulmonic Valve * Pulmonic valve is not well visualized. * No pulmonic stenosis. * Trace pulmonic regurgitation. Mitral Valve * Mildly thickened mitral valve leaflets. * No mitral stenosis. * Mild mitral regurgitation. Aortic Valve * Aortic valve not well visualized. * No aortic stenosis. * Mild aortic regurgitation. History Hypercholesteremia Family History of CAD History of CAD/PTCA Myocardial Infarction 11/17/2016 a Previous Echo was performed. Measurements: BP: 116/ 66 2D Normal Values RVIDd: 2.80 cm IVSd: .70 cm 0.6 - 1.0 cm LVIDd: 4.90 cm 3.7 - 5.6 cm LVPWd: .80 cm 0.6 - 1.1 cm LVIDs: 3.80 cm 1.5 - 3.6 cm AO: 2.70 cm < 4.0 cm %FS: 22.40 cm >25 % LA volume: 48 Mitral Valve Peak E:.90 m/sec Peak A:.44 m/sec E/A Ratio:2 Peak E' Lat Thaddeus:8.09 cm/s Peak E' Med Thaddeus:6.24 cm/s E/E' Lat Ratio:11.2 E/E' Med Ratio:14.5 Updated by Pavan Henriquez MD, [facility] on 01/29/2017 4:25:07 PM electronically signed on 01/29/2017 4:25:40 PM with status of Final Wall Motion Flynn: 1=Normal, 2=Hypokinesis, 3=Akinesis, 4=Dyskinesis, 5=Aneurysmal, 6=Hyperkinetic, X=Not Visualized (Blank)=Missing
--- NOTE | 2017-01-29 17:04 | Event Note ---
Date of Encounter: 01/29/17 Time of Encounter: 16:59 [facility] result reviewed. Patent stent, unchanged coronaries. Case discussed with EP - ICD recommended for secondary prevention and reattempt BB therapy. Impressions: 1. CAD, recent [place]. 2. ICMP. 3. Sustained VT s/p defibrillation. Reattempt low dose BB. Start low dose - Toprol XL 12.5 mg daily. Continue DAPT and statin therapy. Maintain K > 4 and Mg > 2. R/B/A to a [facility] discussed. Patient, brother agreeable. Thanks, Poli Hung DO, FACC
[2017-01-29] MEDS: Metoprolol XL (24 HR) Succ 25 MG TAB.ER.24H PO SCH (17:21)
[2017-01-30 05:18] LABS: Basophils # 0.1 K/mcL (0.0-0.2); Hematocrit 39.4 % (35.3-44.9); Mean Corpuscular Hemoglobin 30.4 pg (28.0-33.3); Mean Corpuscular Volume 92.3 fL (83.0-100.0); Mean Platelet Volume 9.1 fL (9.4-12.4); Platelet Count 267 K/mcL (140-400); Red Blood Count 4.27 M/mcL (3.82-4.97); Red Cell Distribution Width 14.1 % (11.5-14.5)
[2017-01-30 05:40] LABS: BUN/Creatinine Ratio 11 (6-26); Blood Urea Nitrogen 8 mg/dL (7-20); Calcium 8.2 mg/dL (8.6-10.8); Carbon Dioxide 24 mEq/L (19-29); Chloride 109 mEq/L (98-109); Glucose 77 mg/dL (70-99); Magnesium 2.2 mg/dL (1.6-2.6); Osmolality,Calculated 285 (280-300); Phosphorous 3.2 mg/dL (2.3-4.7); Potassium 4.2 mEq/L (3.5-4.5); Sodium 139 mEq/L (136-145); eGFR For African Americans > 60 (> 60); eGFR For Non-African Americans > 60 (> 60)
[2017-01-30] MEDS ORDERED: Water for inj. (sterile) 10 ML IV ONE (06:45)
[2017-01-30] MEDS ORDERED: 0.9 % Sodium Chloride 500 ML ONE (06:46)
[2017-01-30] MEDS ORDERED: D5% in Water (Mini-Bag+) 100 ML IVPB ONE (06:46)
[2017-01-30] MEDS ORDERED: 0.9 % Sodium Chloride 1,000 ML ONE (06:48)
[2017-01-30] MEDS ORDERED: *HR* Midazolam HCl 2 MG/2 ML VIAL ONE (07:27)
[2017-01-30] MEDS ORDERED: *HR* FentaNYL (PF) 100 MCG/2 ML VIAL ONE (07:27)
--- NOTE | 2017-01-30 07:39 | Pre-Sedation Evaluation ---
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 Recent Vitals: Last Vital Signs Temp 97.8 F 01/30/17 04:19 Pulse 63 01/30/17 04:19 Resp 18 01/30/17 04:19 BP 102/61 01/30/17 04:19 Pulse Ox 98 01/30/17 04:19 H&P (including ROS) documented in medical record: Yes Previous reaction to sedatives/anesthetics: No Dietary Status: NPO after Midnight Airway Assessment: Patient can open mouth completely, TMJ function normal, Micrognathia (under-bite, receding chin) absent Dentition: No loose teeth or bridges, dentures removed Possible difficult airway: No ASA Classification *see protocol: CLASS II-Mild systemic disease Plan of Care: Pt appropriate candidate for procedure/moderate/conscious sedation , Risks/benefits of procedure/sedation discussed w/ patient/family
[2017-01-30 08:10] LABS: Eosinophils # 0.1 K/mcL (0.0-0.6); Lymphocytes # 3.1 K/mcL (0.6-4.6); Monocytes # 0.4 K/mcL (0.0-1.3); Neutrophils # 3.3 K/mcL (1.6-8.9); Reactive Lymphocytes Present (Not Present)
[2017-01-30] MEDS: Metoprolol XL (24 HR) Succ 25 MG TAB.ER.24H PO SCH (09:05)
[2017-01-30] MEDS: Aspirin 81 MG TAB.CHEW PO SCH (09:06)
--- NOTE | 2017-01-30 09:22 | Invasive Diagnostic Lab ---
Dual Chamber ICD Insertion Name: Lynn Hernandez Date of Study: 01/30/2017 Date: 1955 Ht: 168.0 cm / 66.1 in Medical Record#: [id number] Age: 61 Wt: 51.0 kg / 112.4 lb Gender: Female BSA: 1.57 Location: Fluoro Dose: 168 mGy BMI: 18.07 Performing MD: Caio Shore MD, [facility] Procedures Performed: Procedure Dual ICD Insertion Indications: Description Secondary Prevention of Sudden Cardiac Impressions: * Successful implant of dual chamber ICD generator. Degree of difficulty was moderate. Appropriate functionality was observed at the end of the case. Procedure completed without incident. Recommendations: The patient will follow-up in 4-6 weeks for ICD interrogation and evaluation with their Commercial Pest Control Technician. Procedure Description: After obtaining informed consent, the patient was brought to the electrophysiology laboratory in the fasting, post absorptive state. The patient was prepped and draped exposing the left chest. Local anesthesia was obtained with 1% Lidocaine. A 5 cm incision was created 2 fingerbredths below and parallel to the clavicle and carried down to the prepectoral fascia. At that level, a pocket was created to accommodate and size the hardware. An antibiotic soaked sponge was placed in the pocket. Hemostasis was obtained. Venous access was obtained using Axillary vein sticks. A total of three venous guide wires were utilized. A 9 Fr. Safe was used for the RV lead.The RV lead was manipulated under direct fluoroscopy to find a physically stable and electrically optimal location in the RV Adams. See device, pacing and sensing data below. The right atrial lead then placed. It was manipulated under direct fluoroscopy to find a physically stable and electrically optimal location in the RA appendage. See device, pacing and sensing data below. All leads were sutured to the prepectoral fascia. The previously placed antibiotic sponges were removed. Hemostasis was obtained. The pocket was copiously irrigated with antibiotic solution. Pocket was visually inspected for retained debris and foreign objects and there was none. The device was then connected to the leads in standard fashion. All set screws were visually inspected and deployed in standard configuration. The device was placed in the pocket. A retaining anchoring suture to the prepectoral fascia was placed. The wound was closed in layers starting with 2-0 Vicryl for the deep layer and 4-0 Vicryl for the skin. Steri-Strips were placed and 4x4s secured with tape. Defibrillation testing was not done. The patient tolerated the procedure well. Complications: None Disposition: The patient was returned to the recovery room. Patient will be scheduled to have a follow-up wound check in one week here at [facility]. A portable chest x-ray was obtained to document lead position and rule out pneumothorax ICD Device Information: Communications Programmer Model Name Model Number Serial Number Medtronic DigicompanionA MRI [id number] ICD Lead(s) Information: Communications Programmer Model Name Model No. Serial No. Placement medtronic [id number]-[id number] RV Adams medtronic 5076-45 [id number] RA septum PSA Measurement Data: Sensing (mV) Threshold (V) / (msec) Impedance (Ohms) Atrial Lead 1.1 1.5 / 0.5 675 RV Lead 8.5 0.8 / 0.5 495 LV Lead Device Measurement Data: Sensing (mV) Threshold (V) / (msec) Impedance (Ohms) Atrial Lead 1.1 1.6 / 0.5 675 RV Lead 8.5 0.8 / 0.5 495 LV Lead Device Settings: MODE: AAIR <-> DDDR Lower Rate: 60 bpm JUN Delay: Upper Rate: 120 bpm PAV Delay: Procedure Medications: Time Medication Dose Unit Route 07:35 AM Versed 1 Mg Intravenous 07:35 AM Fentanyl 25 Mcg Intravenous 07:40 AM Ancef 1 gram Intravenous 07:49 AM Lidocaine 2% 9 mL Subcutaneous 07:52 AM Versed 1 Mg Intravenous 07:52 AM Lidocaine 2% 10 mL Subcutaneous 07:53 AM Fentanyl 25 Mcg Intravenous Contrast: Isovue 0 ml. Complications: No complications occurred during the procedure. Complication None Updated by Caio Shore MD, FACC on 01/30/2017 9:17:19 AM electronically signed on 01/30/2017 9:18:15 AM with status of Final
--- NOTE | 2017-01-30 09:46 | Internal Med Progress Note ---
Date of Encounter: 01/30/17 Time of Encounter: 09:40 - Assessment and plan (1) Non-ST elevation myocardial infarction (NSTEMI) due to mismatch of myocardial oxygen supply and demand Current Visit: Yes Status: Acute Assessment and plan: S/P cardioversion for rate control as she became hypotensive after amiodarone was initiated Elevation of TNI after cardioversion No chest pain reported History of CAD, recent ACS event s/p PCI to circumflex. S/P LHC: Stent patent and unchange coronaries. Continue ASA, Plavix, statin therapy Low dose BB (Toprol XL 12.5mg PO qd) Will closely monitor BP Cardiology consultation appreciated Likely d/c in am. (2) Narrow complex tachycardia Current Visit: Yes Status: Acute Assessment and plan: s/p cardioversion was sent from cardiac rehab resolved at this time plan as listed above (3) CAD (coronary artery disease) Current Visit: Yes Status: Chronic Qualifiers: Coronary Disease-Associated Artery/Lesion type: unspecified vessel or lesion type [place] vs. transplanted heart: [place] heart Associated angina: angina presence unspecified Qualified Code(s): I25.10 - Atherosclerotic heart disease of [place] coronary artery without angina pectoris (4) Hypokalemia Current Visit: No Status: Acute Assessment and plan: Resolved Goal K >4 as per cardio continue to monitor electrolytes and replace as needed (5) DVT prophylaxis Current Visit: Yes Status: Acute Assessment and plan: Lovenox SQ Early ambulation encouraged - Subjective Interval history: Patient seen and examined at bedside. s/p LHC on 01/29/17 which showed patent stent and unchanged coronaries. Decision to place an AICD was made by cardiology for secondary prevention given sustained VT upon arrival to the ER. Pt is s/p AICD placement this morning (01/30/17). Resting in bed, eating breakfast. Tolerated the procedure well. No discomfort reported at this time. Reports of being a former smoker. No diagnosis of COPD reported. - Constitutional Vitals: Temp Pulse Resp BP Pulse Ox 97.8 F 60 18 102/61 98 01/30/17 04:19 01/30/17 09:11 01/30/17 04:19 01/30/17 04:19 01/30/17 04:19 General appearance: Present: cooperative, A&O X 3, pleasant, no acute distress, answers questions appropriately - Head Head exam: Present: atraumatic, normocephalic - Eye Eye exam: Present: normal appearance, conjuntiva pink, sclera anicteric - Respiratory Respiratory exam: Present: CTAB. Absent: accessory muscle use, rales, rhonchi, wheezes - Cardiovascular Cardiovascular exam: Present: RRR, +S1, +S2. Absent: diastolic murmur, gallop, rubs, systolic murmur Additional comments: left chest wall AICD in place - GI/Abdominal GI/Abdominal exam: Present: normal bowel sounds, soft, no peritoneal signs. Absent: distended, tenderness - Extremities Exam Extremities exam: Present: warm, radial pulses palpable and symetrical. Absent : calf tenderness, cyanotic, pedal edema - Neurological Exam Neurological exam: Present: alert, oriented X3, no focal deficits - Psychiatric Psychiatric exam: Present: normal affect, normal mood Internal Medicine: Result - Labs CBC & Chem 7: 01/30/17 05:04 01/30/17 05:04 Labs: Short CBC 01/30/17 Range/Units 05:04 WBC 7.1 (4.3-11.1) K/mcL Hgb 13.0 (11.5-15.4) g/dL Hct 39.4 (35.3-44.9) % Plt Count 267 (140-400) K/mcL Neutrophils # 3.3 (1.6-8.9) K/mcL BMP 01/30/17 05:04 Sodium 139 Potassium 4.2 Chloride 109 Carbon Dioxide 24 BUN 8 Creatinine 0.76 Glucose 77 Calcium 8.2 L - ABG Interpretation ABG results: PT/INR, D-dimer PT 11.7 Seconds (9.4-12.1) 01/28/17 17:05 - Impressions Impressions Chest X-Ray 01/30/17 08:42 IMPRESSION: Interval placement of dual chamber pacemaker. Small amount of left chest wall subcutaneous gas without pneumothorax visible. D/ / Ge Mccann MD / Ge Mccann MD Interpreting Provider: Ge Mccann MD Consult Discharge Plan - Plan Referrals: NO,PCP [Primary Care Provider] -
[2017-01-30] MEDS: Budesonide/Formoterol 160/4.5 MDI IH SCH (11:26)
--- NOTE | 2017-01-30 13:24 | Event Note ---
Date of Encounter: 01/30/17 Time of Encounter: 13:22 - Cardiology Event Note S/p ICD placement today for NSVT. Telemetry review from the last 24 hours shows SR-SB. Avg HR was 53 bpm. Lowest HR was 39 bpm at 0340 am. No significant bradycardia seen during daytime hours. Occasional paced beats seen this afternoon. Rare PVC. Appears to be tolerating toprol XL. Potassium and magnesium remain in normal limits. Will repeat CXR and device check in the morning.
[2017-01-30] MEDS: ceFAZolin 2,000 MG in D5% in Water 100 ML IVPB SCH (15:21)
[2017-01-30] MEDS: *HR* Morphine 2 MG/ML SYRINGE IVP PRN ×2 (15:21→20:39)
--- NOTE | 2017-01-30 17:47 | Electrocardiograph Report ---
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
[2017-01-31] MEDS: Budesonide/Formoterol 160/4.5 MDI IH SCH ×2 (00:24→11:37)
[2017-01-31] MEDS: ceFAZolin 2,000 MG in D5% in Water 100 ML IVPB SCH (00:28)
[2017-01-31] MEDS ORDERED: *HR* Enoxaparin 30 MG/0.3 ML SYRINGE SQ SCH (06:00)
[2017-01-31 06:18] LABS: Hematocrit 39.1 % (35.3-44.9); Hemoglobin 12.9 g/dL (11.5-15.4); Mean Corpuscular Hemoglobin 30.4 pg (28.0-33.3); Mean Platelet Volume 9.2 fL (9.4-12.4); Platelet Count 271 K/mcL (140-400); Red Blood Count 4.25 M/mcL (3.82-4.97); Red Cell Distribution Width 14.1 % (11.5-14.5)
[2017-01-31 06:30] LABS: BUN/Creatinine Ratio 13 (6-26); Blood Urea Nitrogen 10 mg/dL (7-20); Calcium 8.7 mg/dL (8.6-10.8); Carbon Dioxide 23 mEq/L (19-29); Chloride 104 mEq/L (98-109); Glucose 109 mg/dL (70-99); Magnesium 1.8 mg/dL (1.6-2.6); Osmolality,Calculated 278 (280-300); Phosphorous 4.3 mg/dL (2.3-4.7); Sodium 134 mEq/L (136-145); eGFR For African Americans > 60 (> 60); eGFR For Non-African Americans > 60 (> 60)
[2017-01-31 06:52] LABS: Basophils # 0.2 K/mcL (0.0-0.2); Lymphocytes # 1.8 K/mcL (0.6-4.6); Monocytes # 0.4 K/mcL (0.0-1.3); Neutrophils # 6.5 K/mcL (1.6-8.9); Platelet Estimate Normal (Normal)
[2017-01-31 06:53] LABS: Hypochromasia Present (Not Present); Reactive Lymphocytes Present (Not Present)
[2017-01-31] MEDS: Metoprolol XL (24 HR) Succ 25 MG TAB.ER.24H PO SCH (08:00)
[2017-01-31] MEDS: Aspirin 81 MG TAB.CHEW PO SCH (08:00)
--- NOTE | 2017-01-31 08:59 | Cardiology Progress Note ---
Date of Encounter: 01/31/17 Time of Encounter: 08:00 Assessment and Plan (1) Ventricular tachycardia Current Visit: Yes Status: Acute Patient presented from cardiac rehab with symptomatic narrow complex ventricular tachycardia. Left heart catheterization showed patent stent. TTE showed EF 40%, previously 30% on angiogram and 45-50% on TTE. S/p ICD insertion 01/30/17. Toprol XL added. No recurrent sustained VT. Telemetry review shows atrial pacing and occasional bigeminy. One kwesi noted. Increase Toprol as tolerated. Increase to 12.5 mg BID today. Out-pt f/u will be scheduled. Cardiology will sign off if no acute finding on CXR. Call with questions. (2) CAD (coronary artery disease) Current Visit: Yes Status: Chronic H/o STEMI 11/12/16. LHC 11/13/17- 100% stenosis in the pCX, 60% dRCA. EF 30% on angiogram. TTE 11/14/17- EF 55%, mild systolic dysfunction, moderate diastolic dysfunction , mild MR. Limited TTE 11/17/17- EF 45-50%. Segmental wall motion abnormality, small circumferential pericardial effusion. Conttinue asa, plavix, and statin. Not on bb d/t hypotension. Continue cardiac rehab after discharge. Qualifiers: Coronary Disease-Associated Artery/Lesion type: unspecified vessel or lesion type [place] vs. transplanted heart: [place] heart Associated angina: angina presence unspecified Qualified Code(s): I25.10 - Atherosclerotic heart disease of [place] coronary artery without angina pectoris (3) Elevated troponin Current Visit: Yes Status: Acute (4) S/P ICD (internal cardiac defibrillator) procedure Current Visit: Yes Status: Acute S/p dual chamber, medtronic, ICD implant with Dr. Caio Shore. Post a device check is normal. Mild swelling around site noted. No hematoma or ecchymosis noted. Recommend ice pack and Tylenol as needed. Cardiology follow-up will be made for device check and with process expert. Activity restrictions including no lifting over 5 pounds for one month, no driving for 2 weeks, and dressing care reviewed. F/u CXR pending. Discussion w patient/family: The assessment and plan as outlined above was discussed with the patient and/or family members who expressed understanding and agreement. All questions were answered. Thank you for involving us in the care of your patient. Please call with any questions. Subjective Principal diagnosis: NSVT Interval history: Ms. Hernandez complains of mild swelling and tenderness around ICD site. Denies palpitations or shortness of breath. Objective Vital Signs, Last 4 Hours Temp Pulse Resp BP Pulse Ox 01/31/17 07:52 60 01/31/17 07:28 97.8 F 59 17 108/67 96 General: Conversant, No Apparent Distress HEENT: Atraumatic, Normocephaly, Mucus Membranes Moist Neck: No JVD, Normal carotid pulses Cardiac: Reg Rate and Rhythm, Normal S1 and S2, No Murmur, Other (Atrial paced on telemetry.) Lungs: Normal Breath Sounds, No Wheeze, Rales, Rhonchi Neuro: Alert and responsive, No focal deficits noted Abdomen: Soft, Non-Tender Skin: No rashes noted on visualized skin Musculoskeletal: No Chest Wall Tenderness Extremities: No Clubbing, No Cyanosis, No Edema, Normal Pulses, Other (Left upper chest dressing dry and intact. No ecchymosis noted. Mild edema around ICD noted.) Results 01/31/17 05:49 01/31/17 05:49 Lab Results 01/31/17 01/31/17 05:49 05:49 WBC 8.8 Hgb 12.9 Hct 39.1 Plt Count 271 Sodium 134 L Potassium 4.0 Chloride 104 Carbon Dioxide 23 BUN 10 Creatinine 0.78 Glucose 109 H Calcium 8.7 Magnesium 1.8 - EKG Interpretation EKG results cardiology: other (Telemetry review shows atrial pacing. One kwesi noted. Occasional bigeminy. Her chart rate was 75 bpm.) Consult Discharge Plan - Plan Referrals: NO,PCP [Primary Care Provider] -
[2017-01-31 10:59] VITALS: BP 100/69
--- NOTE | 2017-01-31 11:59 | Discharge Summary ---
Date of Encounter: 01/31/17 Time of Encounter: 11:54 - Discharge Diagnosis (1) Non-ST elevation myocardial infarction (NSTEMI) due to mismatch of myocardial oxygen supply and demand Priority: Primary Status: Acute (2) Narrow complex tachycardia Priority: Primary Status: Acute (3) CAD (coronary artery disease) Priority: Secondary Status: Chronic Qualifiers: Coronary Disease-Associated Artery/Lesion type: unspecified vessel or lesion type [place] vs. transplanted heart: [place] heart Associated angina: angina presence unspecified Qualified Code(s): I25.10 - Atherosclerotic heart disease of [place] coronary artery without angina pectoris (4) Hypokalemia Priority: Secondary Status: Acute (5) DVT prophylaxis Priority: Secondary Status: Acute - Discharge Medications Prescriptions: Metoprolol XL (24 HR) Succ [Toprol Xl] 12.5 mg PO BID #60 tab.er.24h Home Medications: Aspirin 81 mg PO DAILY #30 tab.chew 11/18/16 [Rx] Budesonide/Formoterol 160/4.5 [Symbicort 160/4.5] 2 puff IH BIDR #1 inhaler [Rx] Clopidogrel [Plavix] 75 mg PO DAILY #30 tablet 11/18/16 [Rx] Nitroglycerin 0.4 mg SL Q5MIN PRN #30 tab.subl 11/18/16 [Rx] Rosuvastatin [Crestor] 40 mg PO HS #30 tablet 11/18/16 [Rx] Metoprolol XL (24 HR) Succ [Toprol Xl] 12.5 mg PO BID #60 tab.er.24h 01/31/17 [ Rx] Allergies/Adverse Reactions: Allergies No Known Allergies Allergy (Verified 11/12/16 17:47) Procedures/tests Complete & Pending: Procedures Performed prior 72 hours Category Date Time Status CL Insert ICD [CL] Routine Clinic Nurse 01/29/17 15:33 Completed ECG 12 lead ECG [ECG] Routine Y 01/29/17 08:53 Completed Date of admission: 01/29/17 14:59 Primary care physician: PCP NO Consults: Cardiology: Dr. Hung, Dr. Shore Discharging clinician: Sue Blackmon Anticipated date of discharge: 01/31/17 - Patient Status Disposition: Home, Self-Care Condition: Good Functional capacity at discharge: independent ambulation Overall status at discharge: patient is back to baseline - Discharge Instructions Follow Up With: NO,PCP [Primary Care Provider] - Additional Instructions: Please follow-up with your primary care physician and cardiology within 1 week after discharge from the hospital. Please continue aspirin, Plavix, statin, beta rosa (Metoprolol) therapy after discharge from the hospital. Your home metoprolol dose has been increased to 12.5 mg twice a day. Closely monitor blood pressure, if you continue to have low blood pressure readings, please call your airport ramp agent and hold metoprolol dosing (if SBP<100) Please resume all usual home medications as prescribed by her primary care physician - Diet and Activity Activity: resume usual activities as tolerated Diet: low salt diet Hospital course: Ms. Hernandez is a 61 year old female with past medical history of CAD status post BIANCA placement who was admitted for management of acute onset of V. tach. Patient was seen by cardiology and underwent left heart catheterization which showed patent stent and unchanged coronaries. Patient has history of hypotension secondary to beta roas and given recent sustained V. tach she underwent AICD placement. She was restarted on beta rosa therapy which she is tolerating well. At this time patient is hemodynamically stable, heart rate well controlled, and in no distress. She will be discharged to home with follow -up with her primary care physician and cardiology. - Time Spent with Patient Total time spent providing and/or coordinating discharge services: Greater than 30 minutes - Constitutional Vitals: Temp Pulse Resp BP Pulse Ox 97.8 F 60 16 100/69 97 01/31/17 10:57 01/31/17 11:47 01/31/17 10:57 01/31/17 10:57 01/31/17 10:57 General appearance: Present: cooperative, A&O X 3, pleasant, no acute distress, answers questions appropriately - Head Head exam: Present: atraumatic, normocephalic - Respiratory Respiratory exam: Present: CTAB. Absent: accessory muscle use, rales, rhonchi, wheezes - Cardiovascular Cardiovascular exam: Present: RRR, +S1, +S2. Absent: diastolic murmur, gallop, rubs, systolic murmur Additional comments: Left chest wall AICD in place-dressing intact - GI/Abdominal GI/Abdominal exam: Present: normal bowel sounds, soft, no peritoneal signs. Absent: distended, tenderness - Extremities Exam Extremities exam: Present: warm, radial pulses palpable and symetrical. Absent : calf tenderness, cyanotic, pedal edema - Neurological Exam Neurological exam: Present: alert, oriented X3, no focal deficits. Absent: pronater drift, facial droop, speech deficit - Psychiatric Psychiatric exam: Present: normal affect, normal mood
[2017-01-31] MEDS ORDERED: Metoprolol XL (24 HR) Succ 25 MG TAB.ER.24H PO SCH (21:00)
--- NOTE | 2017-02-04 10:53 | Invasive Diagnostic Lab ---
Name: Lynn Hernandez Date of Study: 01/29/2017 Date: 1955 Ht: 168.0 cm /66.1 in Medical Record#: [id number] Age: 61 Wt: 49. kg / 108.03 lb Account/Order#: [id number] Gender: Female BSA: 1.54 Order #: [id number] Fluoro Dose: 127 mGy BMI: 17.36 Procedure Physician: Stefano Muñoz MD, [facility] Referring MD: Referring MD: Procedures Performed: LEFT HEART CATH Indications: Non-Stemi, vt Impressions: Moderate atherosclerotic coronary artery disease. The left ventricle EF 35% Stent placed from a prior procedure in the Proximal Circumflex is patent. Recommendations: Optimal medical therapy of patient's disease. Aggressive risk factor modification. History/Risk Factors: Current/Recent Smoker Family History of CAD Date: 11/12/2016 Procedure Access obtained in the right Femoral artery by percutaneous puncture Complications: None Contrast: Isovue 80ml Closure Device: MynxGrip Hemodynamics: Pressures Site Systolic/ A Wave Diastolic/ V Wave End Diastolic/ Mean HR AO 92 48 66 45 AO 65 18 37 46 AO 91 35 63 45 AO 84 47 63 48 AO 99 47 65 49 LV 109 1 16 51 LV 99 2 19 54 AO 96 38 64 55 LV Ventriculography Ejection Method: LV Gram Ejection Fraction: 35% Wall Motion: CALLEJAS Anterobasal Mild Hypokinesis Anterolateral Mild Hypokinesis Apical: Mild Hypokinesis Inferoapical Severe Hypokinesis Inferobasal Severe Hypokinesis Coronary Dominance: right Lesion Findings/Interventions * Left Main Coronary Artery The LMCA is angiographically free of disease. * Left Anterior Descending Seperate ostium from the LCX There is a 20% stenosis in the Proximal LAD. The lesion has a [place]ASIA flow of 3. There is a 20% stenosis in the Mid LAD. The lesion has a NYASIA flow of 3. * Circumflex Seperate ostium from the LAD The Proximal Circumflex has patent stents present from a previous procedure. The Circumflex is angiographically free of significant disease. The 1st Marginal is angiographically free of significant disease. * Right Coronary Artery There is a 40% stenosis in the Mid RCA. The lesion has a NYASIA flow of 3. There is a 50-60% stenosis in the Distal RCA. The lesion has a NYASIA flow of 3. Updated by Mary Sites, RT (R) on 01/29/2017 1:44:01 PM Stefano Muñoz MD, FACC electronically signed on 02/04/2017 10:48:28 AM with status of Final
== END 2017-01-31 13:00 | disposition home or self-care (01) | DRG 223 ==
LOC: EMEROO 17:04 → 2NNU 17:04
PROVIDERS: ADMIT Internal Medicine; ATTEND Internal Medicine

== ENCOUNTER 2021-09-01 19:52 | Observation (INO) ==
[2021-09-01] MEDS ORDERED: Isovue-370 500 ML BOTTLE IVP ONE (22:23)
[2021-09-01 23:17] LABS: Basophils % 0.2 %; Eosinophils % 0.3 %; Hematocrit 39.9 % (35.3-44.9); Hemoglobin 13.6 g/dL (11.5-15.4); Immature Granulocytes % 0.4 % (0-4); Lymphocytes # 1.2 K/mcL (0.6-4.6); Lymphocytes % 12.7 %; Mean Corpuscular HGB Conc 34.1 g/dL (31.6-35.5); Mean Corpuscular Hemoglobin 31.4 pg (28.0-33.3); Mean Corpuscular Volume 92.1 fL (83.0-100.0); Mean Platelet Volume 8.7 fL (9.4-12.4); Monocytes # 0.5 K/mcL (0.0-1.3); Monocytes % 4.7 %; Platelet Count 280 K/mcL (140-400); Red Blood Count 4.33 M/mcL (3.82-4.97); Red Cell Distribution Width 12.4 % (11.5-14.5); Segmented Neutrophils % 81.7 %; White Blood Count 9.8 K/mcL (4.3-11.1)
[2021-09-01 23:28] LABS: Bacteria,Urine Few per hpf (None-Few); Bilirubin,Urine Negative (Negative); Blood,Urine Large (Negative); Clarity,Urine Clear (Clear); Color,Urine Light-Yellow (Yellow); Glucose,Urine (UA) Normal (Normal); Ketones,Urine Negative (Negative); Leukocyte Esterase,Urine Trace (Negative); Mucus,Urine Few per lpf (None-Few); Nitrite,Urine Negative (Negative); Protein,Urine 30 mg/dL (Neg-Trace); RBC,Urine 50-100 per hpf (0-3); Specific Gravity,Urine 1.024 (1.010-1.025); Squamous Epithelial Cell,Urine Few per hpf (None-Few); Urobilinogen,Urine Normal (Normal); WBC,Urine 0-3 per hpf (0-3)
[2021-09-01 23:39] LABS: Alanine Aminotransferase 26 Units/L (7-52); Albumin/Globulin Ratio 1.6 (1.1-2.2); Alkaline Phosphatase 63 Units/L (34-104); Amylase 58 Units/L (29-103); Aspartate Amino Transferase 16 Units/L (13-39); BUN/Creatinine Ratio 12 (6-26); Bilirubin,Direct 0.1 mg/dL (0.0-0.2); Bilirubin,Indirect 0.6 mg/dL (0.0-1.0); Bilirubin,Total 0.7 mg/dL (0.3-1.0); Blood Urea Nitrogen 10 mg/dL (8-23); Calcium 9.5 mg/dL (8.6-10.3); Carbon Dioxide 25 mEq/L (23-29); Chloride 103 mEq/L (98-107); Globulin 2.5 g/dL (2.4-3.5); Glucose 117 mg/dL (70-105); Lipase 11 Units/L (11-82); Osmolality,Calculated 282 (280-300); Potassium 4.2 mEq/L (3.5-5.1); Sodium 136 mEq/L (136-145); Total Protein 6.5 g/dL (6.4-8.9); eGFR For African Americans > 60 (> 60); eGFR For Non-African Americans > 60 (> 60)
[2021-09-02] MEDS ORDERED: 0.9 % Sodium Chloride 1,000 ML IVC ONE (00:41)
[2021-09-02] MEDS ORDERED: Ondansetron 4 MG/2 ML VIAL IVP PRN (01:40)
[2021-09-02] MEDS ORDERED: Ketorolac 15 MG/ML VIAL IVP PRN (01:40)
[2021-09-02] MEDS ORDERED: Naloxone 0.4 MG/ML INJ IVP PRN (01:40)
[2021-09-02] MEDS ORDERED: Ipratropium/Albuterol Neb 3 ML IH PRN (02:07)
[2021-09-02] MEDS: 0.9 % Sodium Chloride 1,000 ML IVC SCH ×2 (04:04→15:54)
[2021-09-02 06:21] LABS: Basophils % 0.3 %; Eosinophils # 0.1 K/mcL (0.0-0.6); Eosinophils % 0.7 %; Hemoglobin 12.4 g/dL (11.5-15.4); Immature Granulocytes % 0.2 % (0-4); Lymphocytes # 1.9 K/mcL (0.6-4.6); Mean Corpuscular HGB Conc 32.6 g/dL (31.6-35.5); Mean Corpuscular Hemoglobin 30.2 pg (28.0-33.3); Mean Corpuscular Volume 92.7 fL (83.0-100.0); Mean Platelet Volume 8.9 fL (9.4-12.4); Monocytes # 0.6 K/mcL (0.0-1.3); Monocytes % 6.8 %; Neutrophils # 6.3 K/mcL (1.6-8.9); Platelet Count 292 K/mcL (140-400); Red Cell Distribution Width 12.6 % (11.5-14.5); White Blood Count 8.8 K/mcL (4.3-11.1)
[2021-09-02 06:29] LABS: INR 1.1; Prothrombin Time 11.7 Seconds (9.4-12.1)
[2021-09-02 06:39] LABS: BUN/Creatinine Ratio 11 (6-26); Blood Urea Nitrogen 9 mg/dL (8-23); Calcium 8.8 mg/dL (8.6-10.3); Carbon Dioxide 27 mEq/L (23-29); Chloride 107 mEq/L (98-107); Glucose 81 mg/dL (70-105); Osmolality,Calculated 286 (280-300); Potassium 3.5 mEq/L (3.5-5.1); Sodium 139 mEq/L (136-145); eGFR For African Americans > 60 (> 60); eGFR For Non-African Americans > 60 (> 60)
[2021-09-02 06:58] LABS: Hepatitis B Surface Antigen Nonreactive (Nonreactive)
[2021-09-02 07:26] LABS: Hepatitis B Core IgM Nonreactive (Nonreactive)
[2021-09-02 07:27] LABS: Hepatitis C Virus Antibody Nonreactive (Nonreactive)
[2021-09-02 07:28] LABS: Hepatitis A Antibody IgM Nonreactive (Nonreactive)
[2021-09-02] MEDS ORDERED: Ringers Solution, Lactated 1,000 ML IVC ONE (07:43)
[2021-09-02] MEDS ORDERED: *HR* Dextrose 50 % in Water (Syg) 50 ML SYRINGE IVP PRN (12:36)
[2021-09-02] MEDS ORDERED: D5% in Water 1,000 ML IVC PRN (12:36)
[2021-09-02] MEDS ORDERED: Dextrose Gel 15 GM/37.5 ML TUBE PO PRN ×2 (12:36)
[2021-09-02] MEDS ORDERED: Acetaminophen 325 MG TABLET PO PRN (13:02)
[2021-09-02] MEDS ORDERED: Nitroglycerin 0.4 MG TAB.SUBL SL PRN (17:24)
[2021-09-02] MEDS: Metoprolol XL (24 HR) Succ 25 MG TAB.ER.24H PO SCH (20:19)
[2021-09-03 05:25] LABS: Basophils % 0.5 %; Eosinophils # 0.2 K/mcL (0.0-0.6); Eosinophils % 2.1 %; Hematocrit 39.8 % (35.3-44.9); Hemoglobin 13.1 g/dL (11.5-15.4); Immature Granulocytes % 0.4 % (0-4); Lymphocytes # 1.5 K/mcL (0.6-4.6); Lymphocytes % 19.6 %; Mean Corpuscular HGB Conc 32.9 g/dL (31.6-35.5); Mean Corpuscular Hemoglobin 30.6 pg (28.0-33.3); Mean Platelet Volume 8.5 fL (9.4-12.4); Monocytes # 0.5 K/mcL (0.0-1.3); Monocytes % 6.8 %; Neutrophils # 5.4 K/mcL (1.6-8.9); Platelet Count 281 K/mcL (140-400); Red Blood Count 4.28 M/mcL (3.82-4.97); Red Cell Distribution Width 12.8 % (11.5-14.5); Segmented Neutrophils % 70.6 %; White Blood Count 7.7 K/mcL (4.3-11.1)
[2021-09-03 05:50] LABS: Alanine Aminotransferase 17 Units/L (7-52); Albumin 3.5 g/dL (3.5-5.7); Albumin/Globulin Ratio 1.7 (1.1-2.2); Alkaline Phosphatase 53 Units/L (34-104); Aspartate Amino Transferase 13 Units/L (13-39); BUN/Creatinine Ratio 10 (6-26); Bilirubin,Direct 0.1 mg/dL (0.0-0.2); Bilirubin,Indirect 0.7 mg/dL (0.0-1.0); Bilirubin,Total 0.8 mg/dL (0.3-1.0); Blood Urea Nitrogen 8 mg/dL (8-23); Calcium 8.8 mg/dL (8.6-10.3); Carbon Dioxide 25 mEq/L (23-29); Chloride 107 mEq/L (98-107); Globulin 2.1 g/dL (2.4-3.5); Glucose 83 mg/dL (70-105); Magnesium 2.1 mg/dL (1.6-2.6); Osmolality,Calculated 281 (280-300); Phosphorous 3.6 mg/dL (2.7-4.5); Potassium 3.9 mEq/L (3.5-5.1); Sodium 137 mEq/L (136-145); Total Protein 5.6 g/dL (6.4-8.9); eGFR For African Americans > 60 (> 60); eGFR For Non-African Americans > 60 (> 60)
[2021-09-03] MEDS ORDERED: lisinopriL 5 MG TABLET PO SCH (09:00)
[2021-09-03] MEDS ORDERED: Aspirin 81 MG TAB.CHEW PO SCH (09:00)
[2021-09-03] MEDS: Metoprolol XL (24 HR) Succ 25 MG TAB.ER.24H PO SCH (09:09)
[2021-09-03 10:17] VITALS: BP 108/64; PULSE 61; TEMP 98.2; O2SAT 99
== END 2021-09-03 11:23 | disposition home or self-care (01) ==
LOC: 3ANU 19:52 → EMEROOARM 19:52 → SUATTDRO 09-02 01:29 → 3ANU 09-02 03:18
PROVIDERS: ADMIT Student in an Organized Health Care Education/Training Program; ATTEND Pharmacist